=== PATIENT | female | born 1970 | race Caucasian/White ===

== ENCOUNTER 2021-01-18 06:27 | Emergency (ER) | payer BC ==
[2021-01-18] MEDS ORDERED: Ibuprofen 600 MG Tab PO ONE (07:38)
--- NOTE | 2021-01-18 07:43 | EDM.PDOC ---
ED HPI GENERAL MEDICAL PROBLEM - General Chief Complaint: Chest Pain Stated Complaint: CHEST PAIN Time Seen by Provider: 01/18/21 07:00 Source of Information: Reports: Patient, Family History Limitations: Reports: No Limitations - History of Present Illness INITIAL COMMENTS - FREE TEXT/NARRATIVE: 50-year-old female with no previous cardiac history, woke up with a right parasternal chest discomfort at 5 AM. It hurt to breathe or roll over. It is very localized just to the right lower aspect of the sternum. There is no bruising or rash in the area, she does not have shortness of breath or diaphoresis. No cardiac history. She did carry a flag in a parade 2 days ago and it was windy, she was using her right arm resting the flag on her right chest. No nausea or vomiting, there is a small amount of radiation of pain in through her back. No abdominal pain. 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: Musculoskeletal History: Reports: Fracture Neurological History: Reports: Migraines Oncologic (Cancer) History: Reports: Breast - Infectious Disease History Infectious Disease History: Reports: Chicken Pox - Past Surgical History HEENT Surgical History: Reports: LASIK Female Surgical History: Reports: Breast Reconstruction, Mastectomy Endocrine Surgical History: Reports: Parathyroidectomy Oncologic Surgical History: Reports: Mastectomy Social & Family History - Tobacco Use Tobacco Use Status *Q: Never Tobacco User - Caffeine Use Caffeine Use: Reports: Coffee, Soda - Recreational Drug Use Recreational Drug Use: No ED ROS GENERAL - Review of Systems Review Of Systems: See Below Constitutional: Denies: Fever, Chills HEENT: Reports: No Symptoms Respiratory: Reports: Pleuritic Chest Pain. Denies: Shortness of Breath Cardiovascular: Reports: Chest Pain. Denies: Palpitations GI/Abdominal: Denies: Abdominal Pain, Nausea, Vomiting : Reports: No Symptoms Musculoskeletal: Reports: Back Pain (A small amount of the chest pain seems to radiate through to her back) Skin: Reports: No Symptoms Neurological: Reports: No Symptoms Psychiatric: Reports: No Symptoms ED EXAM, GENERAL - Physical Exam Exam: See Below Exam Limited By: No Limitations General Appearance: Alert, No Apparent Distress Eye Exam: Bilateral Eye: EOMI (Tracking normally) Head: Atraumatic Respiratory/Chest: No Respiratory Distress, Lungs Clear, Other (She can reproduce the pain with breathing and moving but I really cannot reproduce the pain with palpation of the chest wall) Cardiovascular: Regular Rate, Rhythm. No: Extra Beats GI/Abdominal: Soft, Non-Tender Neurological: Alert, Oriented Psychiatric: Normal Affect, Normal Mood Skin Exam: Warm, Dry. No: Rash (No rash over painful area) #1 Interpretation EKG Date: 01/18/21 Time: 06:45 Rhythm: NSR Course - Vital Signs Last Recorded V/S: Last Vital Signs Temp 97.2 F 01/18/21 06:39 Pulse 76 01/18/21 06:39 Resp 16 01/18/21 06:39 BP 170/98 H 01/18/21 06:39 Pulse Ox 97 01/18/21 06:39 - Orders/Labs/Meds Orders: Active Orders 24 hr Category Date Time Status EKG 12 Lead [EK] Routine Ther 01/18/21 07:04 Ordered Labs: Laboratory Tests 01/18/21 Range/Units 07:15 Troponin I < 0.017 (0.000-0.056) ng/mL Meds: Medications Discontinued Medications Generic Name Dose Route Start Last Admin Trade Name [place] PRN Reason Stop Dose Admin Ibuprofen 600 mg 01/18/21 07:38 01/18/21 07:42 Ibuprofen 600 Mg Tab PO 01/18/21 07:39 600 mg ONETIME ONE Administration - Re-Assessments/Exams Free Text/Narrative Re-Assessment/Exam: 01/18/21 07:42 EKG done on arrival was completely normal. After discussing the symptoms with t he patient, troponin and two-view chest x-ray were ordered. These were mostly for reassurance as this is very likely some type of musculoskeletal pain or costochondritis. 600 mg of ibuprofen was given. 01/18/21 07:43 2 view chest x-ray was normal and troponin was 0. Encouraged the patient continue on some as needed ibuprofen for the next couple of days and increase activity as tolerated, returning if she is worsening or develops other concerns. Departure - Departure Time of Disposition: 08:09 Disposition: Home, Self-Care 01 Clinical Impression: Costochondritis, acute - Discharge Information Instructions: Costochondritis, [id number] Referrals: PCP,None [Primary Care Provider] - Forms: ED Department Discharge Care Plan Goals: Continue with a regular dose of ibuprofen for the next couple of days and increase activity as tolerated. Return if anything changes such as you develop a fever or increased shortness of breath. Sepsis Event Note (ED) - Evaluation Sepsis Screening Result: No Definite Risk - Focused Exam Vital Signs: Vital Signs Temp Pulse Resp BP Pulse Ox 01/18/21 06:39 97.2 F 76 16 170/98 H 97 - My Orders Last 24 Hours: My Active Orders 01/18/21 07:04 EKG 12 Lead [EK] Routine - Assessment/Plan Last 24 Hours: My Active Orders 01/18/21 07:04 EKG 12 Lead [EK] Routine
--- NOTE | 2021-01-18 08:45 | CR ---
CHEST: 2 view CLINICAL HISTORY:Dyspnea COMPARISON:None FINDINGS: The heart size, pulmonary vascularity and hilar structures are normal. No infiltrate effusion or pneumothorax is seen. IMPRESSION: No acute cardiopulmonary process.
== END 2021-01-18 07:50 | disposition home or self-care (01) ==
LOC: JP.ED 06:27
DX: M94.0 Chondrocostal junction syndrome [Tietze] (principal); Z88.0 Allergy status to penicillin
CPT/HCPCS: 36415; 71046; 84484; 99285; A9270